=== PATIENT | male | born 1980 | race Caucasian/White ===

== ENCOUNTER 2016-05-21 12:57 | Emergency (ER) | payer OTHER | END 2016-05-21 13:20 | disposition home or self-care (01) | LOC: ER 12:57 | DX: H66.91 Otitis media, unspecified, right ear (principal); F17.210 Nicotine dependence, cigarettes, uncomplicated ==

== ENCOUNTER 2016-07-17 19:41 | Emergency (ER) | payer OTHER | END 2016-07-17 20:13 | disposition left against medical advice (07) | LOC: ER 19:41 | DX: Z53.21 Procedure and treatment not carried out due to patient leaving prior to being seen by health care provider (principal) ==

== ENCOUNTER 2016-07-19 12:49 | Emergency (ER) | payer OTHER | END 2016-07-19 15:40 | disposition home or self-care (01) | LOC: ER 12:49 | DX: M54.16 Radiculopathy, lumbar region (principal); F17.210 Nicotine dependence, cigarettes, uncomplicated; W17.89XA Other fall from one level to another, initial encounter | CPT/HCPCS: 96372; J1885 ==